=== PATIENT | male | born 1965 | race Two or more races ===

== ENCOUNTER 2018-02-06 10:53 | Emergency (ER) | payer SELFPAY ==
[~2018-02-06] VITALS: Ht 170.2 cm; Wt 73.5 kg
[2018-02-06 11:00] VITALS: BP 136/66
== END 2018-02-06 12:19 | disposition home or self-care (01) ==
LOC: ED 12:15
DX: M75.92 Shoulder lesion, unspecified, left shoulder (principal); M75.91 Shoulder lesion, unspecified, right shoulder; F17.200 Nicotine dependence, unspecified, uncomplicated
CPT/HCPCS: 99284